=== PATIENT | female | born 1965 | race Caucasian/White ===

== ENCOUNTER 2018-04-08 16:52 | Emergency (ER) | payer SELFPAY ==
--- NOTE | 2018-04-08 17:27 | EKG REPORT ---
SEVERITY:- ABNORMAL ECG - SINUS TACHYCARDIA BORDERLINE LEFT AXIS DEVIATION NONSPECIFIC LATERAL ST-T CHANGES : Confirmed by: Milton Jain MD 08-Apr-2018 17:21:25
== END 2018-04-08 17:06 | disposition left against medical advice (07) ==
LOC: ER 16:52
DX: Z53.21 Procedure and treatment not carried out due to patient leaving prior to being seen by health care provider (principal)
CPT/HCPCS: 93005; 93010

== ENCOUNTER 2018-06-30 12:14 | Emergency (ER) | payer SELFPAY ==
[2018-06-30] MEDS ORDERED: ONDANSETRON HCL INJ/PF 4 MG/2 ML SDV IV ONE (12:47)
[2018-06-30] MEDS ORDERED: FENTANYL CITRATE INJ/PF 100 MCG/2 ML AMPUL IV ONE (12:47)
--- NOTE | 2018-06-30 12:49 | ER Document Report ---
ED Medical Screen (RME) - General Chief Complaint: Fall Injury Stated Complaint: FALL/BACK,RIGHT ARM, LEFT THUMB PAIN Time Seen by Provider: 06/30/18 12:35 Notes: Patient is a 53-year-old female that presents to the emergency department for chief complaint of neck pain, shoulder pain and left hand pain after fall. Patient reports that she fell about an hour and a half ago off her porch, landing awkwardly, and canal complaining of midline neck tenderness. ROS: Other than noted above, the 12 point review of systems was reviewed with the patient and were negative, all pertinent findings are included in the HPI. PHYSICAL EXAMINATION: Vital signs reviewed. GENERAL: Well-appearing, well-nourished and in no acute distress. HEAD: Atraumatic, normocephalic. EYES: Pupils equal round extraocular movements intact, conjunctiva are normal. ENT: Nares patent NECK: Midline cervical spine tenderness with palpation CV: Heart regular rate and rhythm LUNGS: No respiratory distress Musculoskeletal: Tenderness to palpation to the right shoulder and upper arm, and base of the left thumb. Also tenderness to palpation to the thoracic and lumbar spine. NEUROLOGICAL: Normal speech PSYCH: Normal mood, normal affect. MDM: Patient seen and examined for rapid initial assessment. Vital signs reviewed. A comprehensive ED assessment and evaluation of the patient, analysis of test results and completion of the medical decision making process will be conducted by additional ED providers. *Note is created using voice recognition software and may contain spelling, syntax or grammatical errors. TRAVEL OUTSIDE OF THE [place] IN LAST 30 DAYS: No - Related Data Allergies/Adverse Reactions: hydromorphone [From Dilaudid] Allergy (Verified 06/30/18 12:15) morphine Allergy (Verified 06/30/18 12:15) Past Medical History - Social History Chew tobacco use (# tins/day): No Frequency of alcohol use: None Drug Abuse: None - Past Medical History Cardiac Medical History: Reports: Hx Hypercholesterolemia, Hx Hypertension - noncompliant with medication Endocrine Medical History: Reports: Hx Diabetes Mellitus Type 2 - noncompliant with medication Renal/ Medical History: Denies: Hx Peritoneal Dialysis Physical Exam - Vital signs Vitals: Temp Pulse Resp BP Pulse Ox 98.0 F 88 18 187/98 H 97 06/30/18 12:25 06/30/18 12:25 06/30/18 12:25 06/30/18 12:25 06/30/18 12:25 Course - Vital Signs Vital signs: Temp Pulse Resp BP Pulse Ox 98.0 F 88 18 187/98 H 97 06/30/18 12:25 06/30/18 12:25 06/30/18 12:25 06/30/18 12:25 06/30/18 12:25
[2018-06-30 13:17] LABS: ABSOLUTE BASOPHILS # (AUTO) 0.1 10^3/uL (0.0-0.2); ABSOLUTE EOSINOPHILS # (AUTO) 0.1 10^3/uL (0.0-0.6); ABSOLUTE LYMPHOCYTES (AUTO) 1.3 10^3/uL (0.5-4.7); ABSOLUTE MONOCYTES (AUTO) 0.3 10^3/uL (0.1-1.4); ABSOLUTE NEUT (AUTO) 6.8 10^3/uL (1.7-8.2); BASOPHILS % (AUTO) 0.7 % (0-2); EOSINOPHILS % (AUTO) 1.4 % (0-6); HEMATOCRIT 44.5 % (36.0-47.0); HEMOGLOBIN 15.4 g/dL (12.0-15.5); LYMPHOCYTES % (AUTO) 14.9 % (13-45); MEAN CORPUSCULAR HEMOGLOBIN 31.9 pg (27.0-33.4); MEAN CORPUSCULAR HGB CONC 34.5 g/dL (32.0-36.0); MEAN CORPUSCULAR VOLUME 93 fl (80-97); MONOCYTES % (AUTO) 3.9 % (3-13); PLATELET COUNT 192 10^3/uL (150-450); RED BLOOD COUNT 4.81 10^6/uL (3.72-5.28); RED CELL DISTRIBUTION WIDTH 13.4 % (11.5-14.0); SEGMENTED NEUTROPHILS % (AUTO) 79.1 % (42-78); TOTAL CELLS COUNTED % (AUTO) 100 %; WHITE BLOOD COUNT 8.6 10^3/uL (4.0-10.5)
[2018-06-30 13:34] LABS: ALANINE AMINOTRANSFERASE 44 U/L (9-52); ALKALINE PHOSPHATASE 123 U/L (38-126); ANION GAP 11 (5-19); ASPARTATE AMINO TRANSFERASE 41 U/L (14-36); BILIRUBIN,DIRECT 0.3 mg/dL (0.0-0.4); BLOOD UREA NITROGEN 15 mg/dL (7-20); CALCIUM 9.2 mg/dL (8.4-10.2); CARBON DIOXIDE 30 mmol/L (22-30); CHLORIDE 97 mmol/L (98-107); CREATINE KINASE 33 U/L (30-135); POTASSIUM 4.2 mmol/L (3.6-5.0); SODIUM 138.2 mmol/L (137-145); TOTAL PROTEIN 7.2 g/dL (6.3-8.2)
[2018-06-30 13:41] LABS: GLUCOSE 428 mg/dL (75-110)
[2018-06-30 13:49] LABS: TROPONIN I < 0.012 ng/mL
--- NOTE | 2018-06-30 14:06 | RADIOLOGY REPORT (SQ) ---
EXAM DESCRIPTION: HAND LEFT 3 VIEWS COMPLETED DATE/TIME: 06/30/2018 1:45 pm REASON FOR STUDY: fall, LEFT thumb, hand pain COMPARISON: None. EXAM PARAMETERS: NUMBER OF VIEWS: Three views. TECHNIQUE: AP, lateral and oblique radiographic images acquired of the left hand. LIMITATIONS: None. FINDINGS: MINERALIZATION: Normal. BONES: No acute fracture or dislocation. No worrisome bone lesions. JOINTS: No effusions. SOFT TISSUES: No soft tissue swelling. No foreign body. OTHER: No other significant finding. IMPRESSION: NO RADIOGRAPHIC EVIDENCE OF ACUTE INJURY. TECHNICAL DOCUMENTATION: JOB ID: [id number] [employer] All Rights Reserved Reading location - IP/workstation name: [email or web address]
--- NOTE | 2018-06-30 14:06 | RADIOLOGY REPORT (SQ) ---
EXAM DESCRIPTION: HUMERUS RIGHT COMPLETED DATE/TIME: 06/30/2018 1:45 pm REASON FOR STUDY: fall, right arm pain COMPARISON: None. NUMBER OF VIEWS: Two views. TECHNIQUE: Two radiographic images were acquired of the right humerus to include elbow and shoulder in at least one projection. LIMITATIONS: None. FINDINGS: MINERALIZATION: Normal. BONES: No acute fracture or dislocation. No worrisome bone lesions. SOFT TISSUES: No obvious swelling or foreign body. OTHER: No other significant finding. IMPRESSION: NEGATIVE STUDY OF THE RIGHT HUMERUS. NO RADIOGRAPHIC EVIDENCE OF ACUTE INJURY. TECHNICAL DOCUMENTATION: JOB ID: [id number] [employer]- All Rights Reserved Reading location - IP/workstation name: [email or web address] [id number]
--- NOTE | 2018-06-30 14:07 | RADIOLOGY REPORT (SQ) ---
EXAM DESCRIPTION: L SPINE WHOLE COMPLETED DATE/TIME: 06/30/2018 1:45 pm REASON FOR STUDY: fall, back pain COMPARISON: None. NUMBER OF VIEWS: Five views including obliques. TECHNIQUE: AP, lateral, oblique, and sacral radiographic images acquired of the lumbar spine. LIMITATIONS: None. FINDINGS: MINERALIZATION: Normal. SEGMENTATION: Normal. No transitional anatomy. ALIGNMENT: Normal. VERTEBRAE: Maintained height. No fracture or worrisome bone lesion. DISCS: Multilevel disc space narrowing with osteophytes. POSTERIOR ELEMENTS: Pedicles and facets are intact. No pars defect or posterior arch defects. Facet arthropathy is present. HARDWARE: None in the spine. PARASPINAL SOFT TISSUES: Normal. PELVIS: Intact as visualized. No fractures or worrisome bone lesions. SI joints intact. OTHER: No other significant finding. IMPRESSION: SPONDYLOSIS WITHOUT BONE LESION OR FRACTURE. TECHNICAL DOCUMENTATION: JOB ID: [id number] [employer]- All Rights Reserved Reading location - IP/workstation name: [email or web address]
--- NOTE | 2018-06-30 14:07 | RADIOLOGY REPORT (SQ) ---
EXAM DESCRIPTION: T SPINE AP/LAT COMPLETED DATE/TIME: 06/30/2018 1:45 pm REASON FOR STUDY: fall, back pain midline tender COMPARISON: None. NUMBER OF VIEWS: Two views. TECHNIQUE: AP and lateral radiographic images acquired of the thoracic spine. LIMITATIONS: None. FINDINGS: MINERALIZATION: Normal. ALIGNMENT: Normal. No scoliosis. VERTEBRAE: No fracture or bone lesion. Maintained height, normal segmentation. DISCS: Multilevel disc space narrowing with osteophytes. HARDWARE: None in the spine. MEDIASTINUM AND SOFT TISSUES: Normal heart size and aortic contour. No soft tissue abnormality. VISUALIZED LUNG FERNANDEZ: Clear. OTHER: No other significant finding. IMPRESSION: SPONDYLOSIS WITHOUT BONE LESION OR FRACTURE. TECHNICAL DOCUMENTATION: JOB ID: [id number] [employer] All Rights Reserved Reading location - IP/workstation name: [email or web address]
--- NOTE | 2018-06-30 14:08 | RADIOLOGY REPORT (SQ) ---
EXAM DESCRIPTION: CT CERVICAL SPINE WITHOUT COMPLETED DATE/TIME: 06/30/2018 1:53 pm REASON FOR STUDY: fall, neck pain, midline tender COMPARISON: None. TECHNIQUE: Axial images acquired through the cervical spine without intravenous contrast. Images re viewed with lung, soft tissue and bone windows. Reconstructed coronal and sagittal MPR images review ed. Images stored on PACS. All CT scanners at this facility use dose modulation, iterative reconstruction, and/or weight based d osing when appropriate to reduce radiation dose to as low as reasonably achievable (ALARA). [facility]: Dose Right [facility]: CareDose [facility]: Dose Right [facility]: Teradose 4D [facility]: Smart fanatix RADIATION DOSE: CT Rad equipment meets quality standard of care and radiation dose reduction techniq ues were employed. CTDIvol: 33.0 mGy. DLP: 735 mGy-cm. mGy. LIMITATIONS: None. FINDINGS: ALIGNMENT: Anatomic. MINERALIZATION: Normal. VERTEBRAL BODIES: No fractures or dislocation. DISCS: Multilevel disc space narrowing with osteophytes. FACETS, LATERAL MASSES, POSTERIOR ELEMENTS: Facet arthropathy. No fractures. No dislocation. No ac [place] findings. HARDWARE: None in the spine. VISUALIZED RIBS: No fractures. LUNG APICES AND SOFT TISSUES: No significant or acute findings. OTHER: No other significant finding. IMPRESSION: CHRONIC DEGENERATIVE CHANGES. NO ACUTE FINDINGS. TECHNICAL DOCUMENTATION: JOB ID: [id number] Quality ID # [id number]: Final reports with documentation of one or more dose reduction techniques (e.g., Au tomated exposure control, adjustment of the mA and/or kV according to patient size, use of iterative reconstruction technique) 2010 [employer]- All Rights Reserved Reading location - IP/workstation name: [email or web address]
--- NOTE | 2018-06-30 14:10 | RADIOLOGY REPORT (SQ) ---
EXAM DESCRIPTION: CT HEAD WITHOUT COMPLETED DATE/TIME: 06/30/2018 1:53 pm REASON FOR STUDY: fall, head injury COMPARISON: None. TECHNIQUE: Axial images acquired through the brain without intravenous contrast. Images reviewed wi th bone, brain and subdural windows. Images stored on PACS. All CT scanners at this facility use dose modulation, iterative reconstruction, and/or weight based d osing when appropriate to reduce radiation dose to as low as reasonably achievable (ALARA). [facility]: Dose Right [facility]: CareDose [facility]: Dose Right [facility]: Teradose 4D [facility]: Smart [employer] RADIATION DOSE: CT Rad equipment meets quality standard of care and radiation dose reduction techniq ues were employed. CTDIvol: 53.2 mGy. DLP: 1070 mGy-cm. mGy. LIMITATIONS: None. FINDINGS: VENTRICLES: Normal size and contour. CEREBRUM: No masses. No hemorrhage. No midline shift. No evidence for acute infarction. Normal gra y/white matter differentiation. No areas of low density in the white matter. CEREBELLUM: No masses. No hemorrhage. No alteration of density. No evidence for acute infarction. EXTRAAXIAL SPACES: No fluid collections. No masses. ORBITS AND GLOBE: No intra- or extraconal masses. Normal contour of globe without masses. CALVARIUM: No fracture. PARANASAL SINUSES: No fluid or mucosal thickening. SOFT TISSUES: No mass or hematoma. OTHER: No other significant finding. IMPRESSION: No acute intracranial findings. EVIDENCE OF ACUTE STROKE: NO. COMMENT: Quality ID # [id number]: Final reports with documentation of one or more dose reduction techniques (e.g., Automated exposure control, adjustment of the mA and/or kV according to patient size, use of iterative reconstruction technique) TECHNICAL DOCUMENTATION: JOB ID: [id number] [place]-72 2010 [employer]- All Rights Reserved Reading location - IP/workstation name: [email or web address]
--- NOTE | 2018-06-30 14:22 | ER Document Report ---
ED Fall - General Chief Complaint: Fall Injury Stated Complaint: FALL/BACK,RIGHT ARM, LEFT THUMB PAIN Time Seen by Provider: 06/30/18 12:35 Primary Care Provider: RENE PINA MD [ACTIVE STAFF] - Follow up in 1 week Notes: 53-year-old female patient emergency department chief complaint of fall. Complaining of pain in her neck, back, left arm and left hand. States that she has been dizzy recently. Denies any chest pain but does have a history of hypertension, open heart surgery, diabetes. Has not been taking any of her medications because she states that she cannot afford to go to the doctor. Denies any chest pain or shortness of breath at this time. Denies any dizziness at this time. TRAVEL OUTSIDE OF THE [place] IN LAST 30 DAYS: No - HPI Occurred: Just prior to arrival Where: Home Context: Lost balance Associated symptoms: None Quality of pain: Achy Severity: Mild Pain Level: 2 Prehospital interventions: C-collar - Related data Allergies/Adverse Reactions: hydromorphone [From Dilaudid] Allergy (Verified 06/30/18 12:15) morphine Allergy (Verified 06/30/18 12:15) Past Medical History - General Information source: Patient - Social History Smoking Status: Current Every Day Smoker Chew tobacco use (# tins/day): No Frequency of alcohol use: None Drug Abuse: None Family History: DM, Hypertension Patient has suicidal ideation: No Patient has homicidal ideation: No - Past Medical History Cardiac Medical History: Reports: Hx Hypercholesterolemia, Hx Hypertension - noncompliant with medication Endocrine Medical History: Reports: Hx Diabetes Mellitus Type 2 - noncompliant with medication Renal/ Medical History: Denies: Hx Peritoneal Dialysis Review of Systems - Review of Systems Notes: Constitutional: denies: Chills, Diaphoresis, Fever, Malaise, Weakness EENT: denies: Eye discharge, Blurred vision, Tearing, Double vision, Nose congestion, Nose discharge, Throat swelling, Mouth pain Cardiovascular: denies: Palpitations, Heart racing, Orthopnea, Dyspnea, Chest pain Respiratory: denies: Cough, Hurts to breathe, Wheezing, Shortness of breath Gastrointestinal: denies: Abdominal pain, Diarrhea, Nausea, Vomiting, Black stools, bright red blood in stool Genitourinary: denies: Burning, Dysuria, Discharge, Frequency, Flank pain, Hematuria Musculoskeletal: Left thumb pain, left arm pain, cervical, thoracic spine pain Hematologic/Lymphatic: denies: Anemia, Easy bleeding, Easy bruising, Blood clots Neurological/Psychological: denies: Confusion, Dementia, Depression, Loss of co nsciousness Skin: No lesions, no masses, no skin breakdown, no abscesses Physical Exam - Vital signs Vitals: Temp Pulse Resp BP Pulse Ox 98.0 F 88 18 187/98 H 97 06/30/18 12:25 06/30/18 12:25 06/30/18 12:25 06/30/18 12:25 06/30/18 12:25 Interpretation: Normal - General General appearance: Appears well, Alert - HEENT Head: Normocephalic, Atraumatic Eyes: Normal Pupils: PERRL - Respiratory Respiratory status: No respiratory distress Chest status: Nontender Breath sounds: Normal Chest palpation: Normal - Cardiovascular Rhythm: Regular Heart sounds: Normal auscultation Murmur: No - Abdominal Inspection: Normal Distension: No distension Bowel sounds: Normal Tenderness: Nontender Organomegaly: No organomegaly - Back Back: Normal, Nontender - Extremities General upper extremity: Normal inspection, Nontender, Normal color, Normal ROM, Normal temperature General lower extremity: Normal inspection, Nontender, Normal color, Normal ROM, Normal temperature, Normal weight bearing. No: Binta's sign - Neurological Neuro grossly intact: Yes Cognition: Normal Orientation: AAOx4 Andrew Coma Scale Eye Opening: Spontaneous Andrew Coma Scale Verbal: Oriented [place] Coma Scale Motor: Obeys Commands [place] Coma Scale Total: 15 Speech: Normal Motor strength normal: LUE, RUE, LLE, RLE Sensory: Normal - Psychological Associated symptoms: Normal affect, Normal mood - Skin Skin Temperature: Warm Skin Moisture: Dry Skin Color: Normal Course - Re-evaluation Re-evalutation: 06/30/18 18:08 Laboratory 06/30/18 06/30/18 06/30/18 13:01 13:01 13:01 WBC 8.6 RBC 4.81 Hgb 15.4 Hct 44.5 MCV 93 MCH 31.9 MCHC 34.5 RDW 13.4 Plt Count 192 Seg Neutrophils % 79.1 H Lymphocytes % 14.9 Monocytes % 3.9 Eosinophils % 1.4 Basophils % 0.7 Absolute Neutrophils 6.8 Absolute Lymphocytes 1.3 Absolute Monocytes 0.3 Absolute Eosinophils 0.1 Absolute Basophils 0.1 Sodium 138.2 Potassium 4.2 Chloride 97 L Carbon Dioxide 30 Anion Gap 11 BUN 15 Creatinine 0.48 L Est GFR ( Amer) > 60 Est GFR (Non-Af Amer) > 60 Glucose 428 H* Calcium 9.2 Total Bilirubin 1.0 Direct Bilirubin 0.3 Neonat Total Bilirubin Not Reportable Neonat Direct Bilirubin Not Reportable Neonat Indirect Bili Not Reportable AST 41 H ALT 44 Alkaline Phosphatase 123 Creatine Kinase 33 CK-MB (CK-2) 0.40 Troponin I < 0.012 Total Protein 7.2 Albumin [address] 06/30/18 12:45 IMPRESSION: CHRONIC DEGENERATIVE CHANGES. NO ACUTE FINDINGS. Hand X-Ray 06/30/18 12:45 IMPRESSION: NO RADIOGRAPHIC EVIDENCE OF ACUTE INJURY. Head CT 06/30/18 12:45 IMPRESSION: No acute intracranial findings. EVIDENCE OF ACUTE STROKE: NO. Humerus X-Ray 06/30/18 12:45 IMPRESSION: NEGATIVE STUDY OF THE RIGHT HUMERUS. NO RADIOGRAPHIC EVIDENCE OF ACUTE INJURY. Lumbar Spine X-Ray 06/30/18 12:45 IMPRESSION: SPONDYLOSIS WITHOUT BONE LESION OR FRACTURE. Thoracic Spine X-Ray 06/30/18 12:45 IMPRESSION: SPONDYLOSIS WITHOUT BONE LESION OR FRACTURE. 06/30/18 18:08 Patient has no obvious fractures or deformities. Labs are unremarkable with exception of her extremely elevated glucose. Patient is a diabetic and she has checked her sugar at home and states that it has been running 3 and 400 range. I am going to restart her on all of her medications. Patient advised to follow- up with primary care doctor soon as possible - Vital Signs Vital signs: Temp Pulse Resp BP Pulse Ox 98.0 F 88 25 H 167/96 H 95 06/30/18 12:25 06/30/18 12:25 06/30/18 15:01 06/30/18 15:00 06/30/18 15:01 - Laboratory Result Diagrams: 06/30/18 13:01 06/30/18 13:01 Laboratory results interpreted by me: 06/30/18 06/30/18 13:01 13:01 Seg Neutrophils % 79.1 H Chloride 97 L Creatinine 0.48 L Glucose 428 H* AST 41 H - EKG Interpretation by Ak EKG shows normal: Sinus rhythm, Intervals, QRS Complexes, ST-T Waves [place]/QRS: Left axis deviation When compared to previous EKG there are: No significant change Discharge - Discharge Clinical Impression: Hyperglycemia due to type 2 diabetes mellitus Qualifiers: Diabetes mellitus intermediate card tender insulin use: without intermediate card tender use Qualified Code(s): E11.65 - Type 2 diabetes mellitus with hyperglycemia Fall Qualifiers: Encounter type: initial encounter Qualified Code(s): W19.XXXA - Unspecified fall, initial encounter Contusion Qualifiers: Encounter type: initial encounter Contusion area: hand Laterality: left Qualified Code(s): S60.222A - Contusion of left hand, initial encounter Condition: Good Disposition: HOME, SELF-CARE Instructions: Contusion ([facility]), Diabetes ([facility]) Additional Instructions: It is very important that you take your regular medications. Please try and phylicia e an appointment with the primary care doctor soon as possible to discuss all of your medical conditions. In the event that your symptoms get worse please return. Make sure you are taking your medications as instructed especially your diabetes and blood pressure medications. Prescriptions: Atorvastatin Calcium [Lipitor 20 mg Tablet] 20 mg PO QHS 30 Days #30 tablet Isosorbide Dinitrate [Isordil Titradose 10 mg Tablet] 10 mg PO BID 30 Days #60 tablet Lisinopril [Prinivil 10 mg Tablet] 10 mg PO DAILY 30 Days #30 tablet Metformin HCl [Glucophage 500 mg Tablet] 500 mg PO BID 30 Days #60 tablet Sertraline HCl [Zoloft 50 mg Tablet] 50 mg PO DAILY 30 Days #30 tablet Referrals: RENE PINA MD [ACTIVE STAFF] - Follow up in 1 week
[2018-06-30] MEDS ORDERED: ATORVASTATIN CALCIUM 20 MG TABLET PO ONE (14:52)
[2018-06-30] MEDS ORDERED: LISINOPRIL 10 MG TABLET PO ONE (14:52)
[2018-06-30] MEDS ORDERED: METFORMIN HCL 500 MG TABLET PO ONE (14:52)
[2018-06-30] MEDS ORDERED: SERTRALINE HCL 50 MG TABLET PO ONE (14:52)
[2018-06-30 15:16] VITALS: BP 167/96
--- NOTE | 2018-06-30 17:47 | EKG REPORT ---
SEVERITY:- BORDERLINE ECG - SINUS RHYTHM LEFT AXIS DEVIATION CONSIDER ANTERIOR INFARCT : Confirmed by: Milton Jain MD 30-Jun-2018 17:45:42
== END 2018-06-30 15:16 | disposition home or self-care (01) ==
LOC: ER 12:14
DX: S60.222A Contusion of left hand, initial encounter (principal); M54.2 Cervicalgia; M54.9 Dorsalgia, unspecified; M79.602 Pain in left arm; W17.89XA Other fall from one level to another, initial encounter; Y92.008 Other place in unspecified non-institutional (private) residence as the place of occurrence of the external cause; E11.65 Type 2 diabetes mellitus with hyperglycemia; M47.9 Spondylosis, unspecified; I10 Essential (primary) hypertension; R42 Dizziness and giddiness; Z88.5 Allergy status to narcotic agent; F17.200 Nicotine dependence, unspecified, uncomplicated
CPT/HCPCS: 93005; 99285; 36415; 82553; 82550; 85025; 80053; 84484; 73130; 73060; 72110; 72070; 70450; 72125; 93010; L0120; J3010; J2405

== ENCOUNTER 2018-07-03 11:39 | Emergency (ER) | payer SELFPAY ==
[2018-07-03] MEDS ORDERED: FENTANYL CITRATE INJ/PF 100 MCG/2 ML AMPUL IM ONE (12:06)
[2018-07-03] MEDS ORDERED: ONDANSETRON 4 MG TAB.RAPDIS PO ONE (12:06)
--- NOTE | 2018-07-03 12:09 | ER Document Report ---
ED Medical Screen (RME) - General Chief Complaint: Fall Stated Complaint: FALL Time Seen by Provider: 07/03/18 12:06 Notes: 53 years old female who was seen here couple of days ago after a fall presents today with difficulty in swallowing since Monday. Able to drink some water but solids were unable to eat. Due to pain diffusely over the anterior part of the neck. Diffuse tenderness over the anterior part of the neck noted. TRAVEL OUTSIDE OF THE [place] IN LAST 30 DAYS: No - Related Data Allergies/Adverse Reactions: hydromorphone [From Dilaudid] Allergy (Verified 06/30/18 12:15) morphine Allergy (Verified 06/30/18 12:15) Past Medical History - Social History Chew tobacco use (# tins/day): No Frequency of alcohol use: None Drug Abuse: None - Past Medical History Cardiac Medical History: Reports: Hx Hypercholesterolemia, Hx Hypertension - noncompliant with medication Endocrine Medical History: Reports: Hx Diabetes Mellitus Type 2 - noncompliant with medication Renal/ Medical History: Denies: Hx Peritoneal Dialysis Physical Exam - Vital signs Vitals: Temp Pulse Resp BP Pulse Ox 98.7 F 105 H 14 150/84 H 94 07/03/18 11:44 07/03/18 11:44 07/03/18 11:44 07/03/18 11:44 07/03/18 11:44 Course - Vital Signs Vital signs: Temp Pulse Resp BP Pulse Ox 98.7 F 105 H 14 150/84 H 94 07/03/18 11:44 07/03/18 11:44 07/03/18 11:58 07/03/18 11:44 07/03/18 11:44
--- NOTE | 2018-07-03 13:29 | RADIOLOGY REPORT (SQ) ---
EXAM DESCRIPTION: CT SOFT TISSUE NECK WITH COMPLETED DATE/TIME: 07/03/2018 12:59 pm REASON FOR STUDY: Pain and difficulty in swallowing/trauma 3 days ag COMPARISON: CT cervical spine and CT brain 06/30/2018 TECHNIQUE: Post IV contrasted scanning from skull base through lung apices with review of bone, soft tissue and lung windows. Reconstructed coronal and sagittal MPR images reviewed. All images stored on PACS. All CT scanners at this facility use dose modulation, iterative reconstruction, and/or weight based d osing when appropriate to reduce radiation dose to as low as reasonably achievable (ALARA). [facility]: Dose Right [facility]: CareDose [facility]: Dose Right [facility]: Teradose 4D [facility]: [employer] CONTRAST TYPE AND DOSE: contrast/concentration: Isovue 350.00 mg/ml; Total Contrast Delivered: 74.0 ml; Total Saline Delivered: 55.0 ml RENAL FUNCTION: Creatinine 0.48 RADIATION DOSE: CT Rad equipment meets quality standard of care and radiation dose reduction techniq ues were employed. CTDIvol: 17.3 mGy. DLP: 668 mGy-cm. . LIMITATIONS: None. FINDINGS: There is diffuse prevertebral soft tissue swelling, measuring up to 2 cm in thickness, fro m the C1-2 articulation down to the C6-7 level. There is mild narrowing of the posterior hypopharynx , and deviation of the esophagus and trachea ventrally on axial images 54 through 65. Immediately ventral to the the C3-4 disc space and bony spurring anteriorly at C3-4, there are severa l small air bubbles. This could indicate infection. These findings were discussed with Dr. Pedro and Dr Riddle. SKULL BASE: Inferior brain parenchyma in the field of view unremarkable MAJOR SALIVARY GLANDS: No solid or cystic masses. No inflammatory changes. LYMPHADENOPATHY: No adenopathy. MUCOSAL MASSES OR ASYMMETRY: No mucosal masses or asymmetry. LARYNX/CORDS: No abnormal findings. VASCULAR STRUCTURES: The major vessels are patent. Atherosclerotic change at both carotid bifurcatio ns without flow significant stenosis LUNG APICES: Clear. BONES: No acute fracture or malalignment. There is degenerative disc change with disc space loss of height and broad diffuse posterior disc bulge and bony spurring and C5-6 and C6-7. Mild central brynn l narrowing at C5-6 and C6-7. No significant C5-6 or C6-7 foraminal stenosis THYROID: Mild diffuse thyromegaly. 6 mm colloid cyst left upper pole thyroid. PARANASAL SINUSES: Clear. OTHER: No other significant finding. IMPRESSION: Diffuse prevertebral soft tissue swelling with few air bubbles present. Findings are wo rrisome for abscess versus hematoma. Findings discussed with the emergency room attending physicians as above. TECHNICAL DOCUMENTATION: JOB ID: [id number] Quality ID # [id number]: Final reports with documentation of one or more dose reduction techniques (e.g., Au tomated exposure control, adjustment of the mA and/or kV according to patient size, use of iterative reconstruction technique) 2010 [employer]- All Rights Reserved Reading location - IP/workstation name: [email or web address]
--- NOTE | 2018-07-03 13:47 | ER Document Report ---
ED General - General Chief Complaint: Fall Stated Complaint: FALL Time Seen by Provider: 07/03/18 12:06 Mode of Arrival: Ambulatory Information source: Patient Notes: 53-year-old female presents with complaint of difficulty swallowing. Patient states that 3 days prior to arrival she had a fall off a porch approximately 3 feet where she landed forward striking her chin and face. She denies any loss of consciousness at that time. Patient was evaluated in the emergency department and apical spine CAT scan was obtained and showed no acute fracture or process. Patient's reports progressively worsening difficulty swallowing. She states last night she attempted to drink water when she began choking and vomited it back up. Patient also states that she has had subjective fevers. TRAVEL OUTSIDE OF THE [place] IN LAST 30 DAYS: No - HPI Onset: Other Onset/Duration: Gradual, Persistent Quality of pain: Achy, Burning, Throbbing Severity: Moderate Associated symptoms: Fever, Other - Difficulty swallowing Exacerbated by: Other - Swallowing Relieved by: Denies Similar symptoms previously: No Recently seen / treated by doctor: Yes - Related Data Allergies/Adverse Reactions: hydromorphone [From Dilaudid] Allergy (Verified 06/30/18 12:15) morphine Allergy (Verified 06/30/18 12:15) Past Medical History - General Information source: Patient, [facility] Records - Social History Smoking Status: Former Smoker Chew tobacco use (# tins/day): No Frequency of alcohol use: None Drug Abuse: None Lives with: Family Family History: DM, Hypertension Patient has suicidal ideation: No Patient has homicidal ideation: No - Past Medical History Cardiac Medical History: Reports: Hx Hypercholesterolemia, Hx Hypertension - noncompliant with medication Endocrine Medical History: Reports: Hx Diabetes Mellitus Type 2 - noncompliant with medication Renal/ Medical History: Denies: Hx Peritoneal Dialysis Review of Systems - Review of Systems Notes: REVIEW OF SYSTEMS: CONSTITUTIONAL : Denies fever, chills, or sweats. Denies recent illness. Denies weight loss, recent hospitalizations. EENT: Denies visual changes, eye pain. Denies sore throat, oral lesions, CARDIOVASCULAR: Denies chest pain. Denies palpitations. Denies lower extremity edema. RESPIRATORY: Denies cough. Denies shortness of breath, wheezing. GASTROINTESTINAL: Denies abdominal pain or distention. Denies nausea, vomiting, or diarrhea. Denies blood in vomitus, stools, or per rectum. Denies black, tarry stools. Denies constipation. GENITOURINARY: Denies difficulty urinating, painful urination, frequency, blood in urine, or vaginal discharge. MUSCULOSKELETAL: Denies back stiffness. Denies joint pain or swelling. SKIN: Denies rash, lesions or sores. HEMATOLOGIC : Denies easy bruising or bleeding. LYMPHATIC: Denies swollen glands. NEUROLOGICAL: Denies confusion or altered mental status. Denies loss of consciousness. Denies dizziness or lightheadedness. Denies headache. Denies weakness or paralysis. Denies problems difficulty with ambulation, slurred sp eech. Denies sensory loss, numbness, or tingling. Denies seizures. PSYCHIATRIC: Denies anxiety or stress. Denies depression, suicidal ideation, or homicidal ideation. Denies visual or auditory hallucinations. Physical Exam - Vital signs Vitals: Temp Pulse Resp BP Pulse Ox 98.7 F 105 H 14 150/84 H 94 07/03/18 11:44 07/03/18 11:44 07/03/18 11:44 07/03/18 11:44 07/03/18 11:44 - Notes Notes: PHYSICAL EXAMINATION: GENERAL: Well-appearing, well-nourished and in no acute distress. GCS 15 HEAD: Atraumatic, normocephalic. EYES: Pupils equal round and reactive to light, extraocular movements intact, sclera anicteric, conjunctiva are normal. Left periorbital ecchymosis. ENT: Nares patent, oropharynx with exudates. Moist mucous membranes. No hemanotympanum . No blood in nares. No dental fracture NECK: Normal range of motion, anterior neck fullness. Trachea midline. No stridor. LUNGS: Breath sounds clear to auscultation bilaterally and equal. No wheezes rales or rhonchi. HEART: Regular rate and rhythm without murmurs. Pulses intact all throughout. ABDOMEN: Soft, nontender, nondistended abdomen. No guarding, no rebound. No masses appreciated. Musculoskeletal: Normal range of motion, no pitting or edema. No cyanosis. Hip non tender, stable. NEUROLOGICAL: Cranial nerves grossly intact. Normal speech, normal gait. Normal sensory, motor, and reflex exams. PSYCH: Normal mood, normal affect. SKIN: Warm, No active bleeding Course - Re-evaluation Re-evalutation: 07/03/18 13:[address] 07/03/18 12:06 IMPRESSION: Diffuse prevertebral soft tissue swelling with few air bubbles present. Findings are worrisome for abscess versus hematoma. Findings discussed with the emergency room attending physicians as above. 07/03/18 13:[address] 07/03/18 12:06 IMPRESSION: Diffuse prevertebral soft tissue swelling with few air bubbles present. Findings are worrisome for abscess versus hematoma. Findings discussed with the emergency room attending physicians as above. Laboratory 07/03/18 07/03/18 13:46 13:46 WBC 12.4 H RBC 4.54 Hgb 14.5 Hct 41.7 MCV 92 MCH 32.0 MCHC 34.8 RDW 12.7 Plt Count 197 Seg Neutrophils % 83.4 H Lymphocytes % 10.2 L Monocytes % 5.7 Eosinophils % 0.2 Basophils % 0.5 Absolute Neutrophils 10.3 H Absolute Lymphocytes 1.3 Absolute Monocytes 0.7 Absolute Eosinophils 0.0 Absolute Basophils 0.1 Sodium 137.7 Potassium 4.1 Chloride 95 L Carbon Dioxide 31 H Anion Gap 12 BUN 12 Creatinine 0.52 Est GFR ( Amer) > 60 Est GFR (Non-Af Amer) > 60 Glucose 258 H Calcium 9.2 Total Bilirubin 1.8 H Direct Bilirubin 0.6 H Neonat Total Bilirubin Not Reportable Neonat Direct Bilirubin Not Reportable Neonat Indirect Bili Not Reportable AST 18 ALT 16 Alkaline Phosphatase 109 Total Protein 7.0 Albumin 3.7 53-year-old female presents with complaint of worsening neck pain, difficulty swallowing. Patient reports that 3 days prior to arrival she had a fall off her porch approximately 3 feet landing forward striking her chin and face. She denies loss of consciousness. She does state that since that time she has had progressively worsening pain and difficulty swallowing to the point where she is unable to tolerate water. Dr. Arana our radiologist called with concern for prevertebral soft tissue swelling with air bubbles within this area. This also showed deviation of the esophagus and trachea. Unclear whether this is an abscess versus hematoma due to patient's recent trauma. Patient does have exudates and subjective fever on exam so there is a possibility that this could be an abscess. I spoke with Dr. Osullivan trauma surgeon at [facility] who believes this is likely infectious. I spoke to our ENT doctor Dr. Rutherford who states that he is concerned that this patient will require a higher level of care than what can be provided here. He states with seeing air within this area it is concerning that there is a possible esophageal tear. He recommended administration of Unasyn and Flagyl which was given. Patient also received IV fluids. Awaiting callback from [facility]. 07/03/18 13:52 [facility] contacted as this is more convenient for where the family is located.. Patient has been accepted by Dr. Agrawal for an ER to ER transfer. I believe this is in the patient's best interest as if this progresses to mediastinitis or this is a traumatic hematoma she will have all the available services required. Because of the potential airway compromise patient requires immediately transfer. She is currently patient is maintaining her airway, shows no evidence of respiratory distress. She is mildly hypoxic but does have a history of COPD. No stridor on exam. We did attempt a swallow study and patient immediately choked. 07/03/18 14:32 07/03/18 21:23 Patient was reevaluated upon [facility] transfer team arrival. She is awake, alert in no respiratory distress. Patient stable for transfer to [facility] - Vital Signs Vital signs: Temp Pulse Resp BP Pulse Ox 100.4 F 93 20 137/109 H 97 07/03/18 14:06 07/03/18 14:44 07/03/18 14:44 07/03/18 14:44 07/03/18 14:44 - Laboratory Result Diagrams: 07/03/18 13:46 07/03/18 13:46 Laboratory results interpreted by me: 07/03/18 07/03/18 13:46 13:46 WBC 12.4 H Seg Neutrophils % 83.4 H Lymphocytes % 10.2 L Absolute Neutrophils 10.3 H Chloride 95 L Carbon Dioxide 31 H Glucose 258 H Total Bilirubin 1.8 H Direct Bilirubin 0.6 H - Diagnostic Test Radiology reviewed: Image reviewed, Reports reviewed Critical Care Note - Critical Care Note Total time excluding time spent on procedures (mins): 35 - Minutes of critical care time spent in direct contact evaluating and reevaluating the patient, treating symptoms, reviewing labs and studies and speaking with family and consultants excluding any procedures Discharge - Discharge Clinical Impression: Cervical hematoma, Prevertebral abscess Condition: Good Disposition: [facility]
[2018-07-03] MEDS ORDERED: METRONIDAZOLE 500 MG/NS RTU 500 MG/100 ML RTUPB IV ONE (13:51)
[2018-07-03] MEDS ORDERED: AMPICILLIN SOD/SULBACTAM 3 GM VIAL IV ONE (13:51)
[2018-07-03] MEDS ORDERED: DEXAMETHASONE SOD PHOS INJ 10 MG/1 ML VIAL IV ONE (14:03)
[2018-07-03 14:08] LABS: ABSOLUTE BASOPHILS # (AUTO) 0.1 10^3/uL (0.0-0.2); ABSOLUTE LYMPHOCYTES (AUTO) 1.3 10^3/uL (0.5-4.7); ABSOLUTE MONOCYTES (AUTO) 0.7 10^3/uL (0.1-1.4); TOTAL CELLS COUNTED % (AUTO) 100 %
[2018-07-03 14:22] LABS: ALANINE AMINOTRANSFERASE 16 U/L (9-52); ALBUMIN 3.7 g/dL (3.5-5.0); ALKALINE PHOSPHATASE 109 U/L (38-126); ANION GAP 12 (5-19); ASPARTATE AMINO TRANSFERASE 18 U/L (14-36); BILIRUBIN,DIRECT 0.6 mg/dL (0.0-0.4); BILIRUBIN,TOTAL 1.8 mg/dL (0.2-1.3); BLOOD UREA NITROGEN 12 mg/dL (7-20); CALCIUM 9.2 mg/dL (8.4-10.2); CARBON DIOXIDE 31 mmol/L (22-30); CHLORIDE 95 mmol/L (98-107); GLUCOSE 258 mg/dL (75-110); POTASSIUM 4.1 mmol/L (3.6-5.0); SODIUM 137.7 mmol/L (137-145)
[2018-07-03 14:30] LABS: ABSOLUTE NEUT (AUTO) 10.3 10^3/uL (1.7-8.2); BASOPHILS % (AUTO) 0.5 % (0-2); EOSINOPHILS % (AUTO) 0.2 % (0-6); HEMATOCRIT 41.7 % (36.0-47.0); HEMOGLOBIN 14.5 g/dL (12.0-15.5); LYMPHOCYTES % (AUTO) 10.2 % (13-45); MEAN CORPUSCULAR HGB CONC 34.8 g/dL (32.0-36.0); MEAN CORPUSCULAR VOLUME 92 fl (80-97); MONOCYTES % (AUTO) 5.7 % (3-13); PLATELET COUNT 197 10^3/uL (150-450); RED BLOOD COUNT 4.54 10^6/uL (3.72-5.28); RED CELL DISTRIBUTION WIDTH 12.7 % (11.5-14.0); SEGMENTED NEUTROPHILS % (AUTO) 83.4 % (42-78); WHITE BLOOD COUNT 12.4 10^3/uL (4.0-10.5)
[2018-07-03 14:45] VITALS: BP 137/109
== END 2018-07-03 14:50 | disposition short-term general hospital (02) ==
LOC: ER 11:39
DX: S10.93XA Contusion of unspecified part of neck, initial encounter (principal); G06.1 Intraspinal abscess and granuloma; R13.10 Dysphagia, unspecified; W17.89XA Other fall from one level to another, initial encounter; Y92.008 Other place in unspecified non-institutional (private) residence as the place of occurrence of the external cause; Z87.891 Personal history of nicotine dependence; I10 Essential (primary) hypertension; E11.9 Type 2 diabetes mellitus without complications; Z91.14 Patient's other noncompliance with medication regimen
CPT/HCPCS: 99291; 96372; 96375; 96365; 36415; 87040; 85025; 80053; 70491; S0119; J3010; J0295; J1100

== ENCOUNTER 2018-07-15 17:59 | Emergency (ER) | payer SELFPAY ==
[2018-07-15 18:17] VITALS: BP 166/91
--- NOTE | 2018-07-16 01:28 | EKG REPORT ---
SEVERITY:- ABNORMAL ECG - SINUS RHYTHM LEFT AXIS DEVIATION PROBABLE LVH WITH SECONDARY REPOL ABNRM : Confirmed by: Miranda Luna MD 16-Jul-2018 01:27:15
== END 2018-07-15 18:43 | disposition left against medical advice (07) ==
LOC: ER 17:59
DX: Z53.21 Procedure and treatment not carried out due to patient leaving prior to being seen by health care provider (principal); R07.9 Chest pain, unspecified
CPT/HCPCS: 93005; 93010

== ENCOUNTER 2018-09-19 16:53 | Emergency (ER) | payer SELFPAY ==
[2018-09-19] MEDS ORDERED: KETOROLAC TROMETHAMINE 60 MG/2 ML SDV IM ONE (19:00)
--- NOTE | 2018-09-19 19:10 | ER Document Report ---
ED Neck/Back Problem - General Chief Complaint: Back Pain Stated Complaint: BACK PAIN Time Seen by Provider: 09/19/18 18:44 Primary Care Provider: [facility] [Provider Group] - Follow up as needed [facility] [Provider Group] - Follow up as needed Mode of Arrival: Ambulatory Information source: Patient Notes: 53-year-old female presents to ED for complaint of low back to the right and right hip pain for 4 days. She denies any history of any injuries. She states she is never had pain in this area before. She does have tenderness to the l umbar spine the right buttocks and the right hip area. States it is very painful to walk or very painful to get up and down out of the bed. TRAVEL OUTSIDE OF THE [place] IN LAST 30 DAYS: No - HPI Patient complains to provider of: Lower back Onset: Other Where: Home - 4 days Onset: Gradual Timing: Still present Quality of pain: Sharp, Throbbing Severity: Moderate Pain Level: 4 Context: Other Recent injury: No - No injuries Associated symptoms: Radiation to leg, Lower back pain Exacerbated by: Movement of trunk, Sitting position Relieved by: Nothing Similar symptoms previously: No Recently seen / treated by doctor: No - Related Data Allergies/Adverse Reactions: hydromorphone [From Dilaudid] Allergy (Verified 09/19/18 16:54) morphine Allergy (Verified 09/19/18 16:54) Past Medical History - General Information source: Patient - Social History Smoking Status: Former Smoker Cigarette use (# per day): No Chew tobacco use (# tins/day): No Smoking Education Provided: No Frequency of alcohol use: None Drug Abuse: None Lives with: Family Family History: DM, Hypertension Patient has suicidal ideation: No Patient has homicidal ideation: No - Past Medical History Cardiac Medical History: Reports: Hx Coronary Artery Disease, Hx Heart Attack, Hx Hypercholesterolemia, Hx Hypertension - noncompliant with medication Pulmonary Medical History: Reports: Hx Asthma EENT Medical History: Reports: None Neurological Medical History: Reports: Other - Neuropathy Endocrine Medical History: Reports: Hx Diabetes Mellitus Type 2 - noncompliant with medication Renal/ Medical History: Reports: None Malignancy Medical History: Reports: None GI Medical History: Reports: Hx Gastroesophageal Reflux Disease, Hx Colonoscopy, Hx Endoscopy, Other - Esophageal tear Musculoskeletal Medical History: Reports Hx Arthritis, Reports Hx Musculoskeletal Deformity - Degenerative disc disease, Reports Hx Musculoskeletal Trauma Skin Medical History: Reports None Psychiatric Medical History: Reports: None Traumatic Medical History: Reports: Hx Fractures - Ankle fingers Infectious Medical History: Reports: None Past Surgical History: Reports: Hx Cardiac Catheterization, Hx Cardiac Surgery - Four-way bypass Review of Systems - Review of Systems Constitutional: No symptoms reported EENT: No symptoms reported Cardiovascular: No symptoms reported Respiratory: No symptoms reported Gastrointestinal: No symptoms reported Genitourinary: No symptoms reported Female Genitourinary: No symptoms reported Musculoskeletal: Back pain, Joint pain - Right hip Skin: No symptoms reported Hematologic/Lymphatic: No symptoms reported Neurological/Psychological: No symptoms reported -: Yes All other systems reviewed and negative Physical Exam - Vital signs Vitals: Temp Pulse Resp BP Pulse Ox 98.9 F 76 20 139/80 H 95 09/19/18 17:11 09/19/18 17:11 09/19/18 17:11 09/19/18 17:11 09/19/18 17:11 Interpretation: Normal - General General appearance: Appears well, Alert - HEENT Head: Normocephalic, Atraumatic Eyes: Normal Pupils: PERRL - Respiratory Respiratory status: No respiratory distress Chest status: Nontender Breath sounds: Normal Chest palpation: Normal - Cardiovascular Rhythm: Regular Heart sounds: Normal auscultation Murmur: No - Abdominal Inspection: Normal Distension: No distension Bowel sounds: Normal Tenderness: Nontender Organomegaly: No organomegaly - Back Back: Normal, Tender, Vertebra tenderness - Lumbar. No: Deformity/step-off, CVA tenderness, Scars, Scoliosis, Wounds Notes: No loss control of bowel bladder, no saddle anesthesia, no loss of lower extremities or no loss of sensation in lower extremities no signs or symptoms of cauda equina - Extremities General upper extremity: Normal inspection, Nontender, Normal color, Normal ROM, Normal temperature General lower extremity: Normal inspection, Normal color, Normal temperature, Normal weight bearing. No: Binta's sign Hip: Tender, Pain with ROM. No: Deformity, Dislocation, Ecchymosis, Instability, Laceration, Unable to bear weight - Neurological Neuro grossly intact: Yes Cognition: Normal Orientation: AAOx4 [place] Coma Scale Eye Opening: Spontaneous Andrew Coma Scale Verbal: Oriented Andrew Coma Scale Motor: Obeys Commands Andrew Coma Scale Total: 15 Speech: Normal Motor strength normal: LUE, RUE, LLE, RLE Sensory: Normal - Psychological Associated symptoms: Normal affect, Normal mood - Skin Skin Temperature: Warm Skin Moisture: Dry Skin Color: Normal Course - Re-evaluation Re-evalutation: 09/19/18 20:34 After performing a Medical Screening Examination, I estimate there is LOW risk for EXPANDING OR RUPTURED ABDOMINAL AORTIC ANEURYSM, CAUDA EQUINA SYNDROME, EPIDURAL MASS LESION, or HERNIATED DISK CAUSING SEVERE SPINAL STENOSIS, thus I consider the discharge disposition reasonable. I have reevaluated this patient multiple times and no significant life threatening changes are noted. The patient and I have discussed the diagnosis and risks, and we agree with discharging home and close follow-up. We also discussed returning to the Emergency Department immediately if new or worsening symptoms occur with the understanding that symptoms and presentations can change. We have discussed the symptoms which are most concerning (e.g., saddle anesthesia, urinary or bowel incontinence or retention, changing or worsening pain) that necessitate immediate return. - Vital Signs Vital signs: Temp Pulse Resp BP Pulse Ox 98.2 F 66 16 136/65 H 96 09/19/18 20:28 09/19/18 20:28 09/19/18 20:28 09/19/18 20:28 09/19/18 20:28 - Diagnostic Test Radiology reviewed: Image reviewed, Reports reviewed Discharge - Discharge Clinical Impression: Degenerative disc disease, lumbar, Arthritis, Right hip pain Scoliosis Qualifiers: Scoliosis type: unspecified scoliosis Spinal region: lumbar Qualified Code(s): M41.9 - Scoliosis, unspecified Low back pain Qualifiers: Chronicity: acute Back pain laterality: bilateral Sciatica presence: with sciatica Sciatica laterality: sciatica of right side Qualified Code(s): M54.41 - Lumbago with sciatica, right side Condition: Stable Disposition: HOME, SELF-CARE Instructions: Family Physicians / Practices Additional Instructions: Arthritis Your symptoms are due to arthritis. Arthritis is an inflammation of the joints. There are many types -- osteoarthritis (due to "wear and tear"), auto- immmune arthritis (such as rheumatoid, lupus, Nahed's, and others), and cr ystal-induced arthritis (such as gout and pseudogout). The physician's examination, combined with laboratory tests, will determine the cause of your arthritis. All types of arthritis are treated with antiinflammatory medications. Other medication may be required for special types of arthritis, or if your problem does not respond to the antiinflammatory medicine. Local warmth may be helpful. Move the involved joints through the full range of motion daily. Mild exercise is usually still possible for most persons with arthritis (ask your physician). Swimming provides good exercise without damaging the joints. Contact the physician if you are worsening in any way. Your x-rays demonstrated multiple degenerative disc disease as well as scoliosis. You need to follow-up with her primary doctor and a back specialist for this. LOW BACK PAIN: Three out of every four people will have an episode of disabling back pain during their lifetime. Most commonly the pain is due to straining of the muscles and ligaments in the low back. Usual treatment includes: (1) Rest on a firm surface. Avoid lying on your stomach. (2) Ice pack the painful area. After a few days, gentle heat may be used intermittently to relax the area, or ice packs can be continued. (3) Medication may be needed -- muscle relaxers and antiinflammatory medicines are commonly used. (4) As the back improves, exercises are prescribed to strengthen the back and abdominal muscles. Your doctor will advise you on the proper care for your back at each stage in your recovery. You may be better in a few days -- or healing may take several weeks. If new symptoms of a "herniated disc" (radiation of pain, numbness, or tingling down the back of the leg or weakness in the leg) occur, you should be re-examined. Further testing may be necessary. ICE PACKS: Apply ice packs frequently against the painful area. Many different schedules are recommended, such as "20 minutes on, 20 minutes off" or "one hour ice, two hours rest." If you need to work, you may need to go longer between ice treatments. You should plan to have the area ice packed AT LEAST one fourth of the time. The ice should be applied over the wrap, tape, or splint, or over a layer of cloth -- not directly against the skin. Some ice bags have a built-in cloth and can be put directly on the skin. WARM PACKS: After approximately two days, apply gentle heat (such as a heating pad or hot water bottle) for about 20 to 30 minutes about every two hours -- at least four times daily. Warmth and elevation will help you make a more rapid recovery, and will ease the pain considerably. Do not use HOT heat, and never apply heat for longer than 30 minutes. The continuous heat can invisibly damage skin and muscles -- even when no burn is seen on the surface. Damaged muscles can make you MORE sore. Toradol Injection You have been given an injection of ketorolac tromethamine (Toradol). This is an excellent, safe drug for pain control. It also has potent antiinflammatory action. You should have significant pain relief within about one hour. Toradol is not addicting and is non-sedating. It does not interfere with driving or work. Call or return if you develop itching, hives, shortness of breath, or rash. FOLLOW-UP CARE: If you have been referred to a physician for follow-up care, call the physicians office for an appointment as you were instructed or within the next two days. If you experience worsening or a significant change in your symptoms, notify the physician immediately or return to the Emergency Department at any time for re-evaluation. Forms: Elevated Blood Pressure Referrals: [facility] [Provider Group] - Follow up as needed [facility] [Provider Group] - Follow up as needed
--- NOTE | 2018-09-19 20:07 | RADIOLOGY REPORT (SQ) ---
EXAM DESCRIPTION: HIP RIGHT AP/LATERAL COMPLETED DATE/TIME: 09/19/2018 7:14 pm REASON FOR STUDY: pain increasing over 4 days COMPARISON: None. NUMBER OF VIEWS: Two views. TECHNIQUE: AP pelvis and additional frog-leg view of the right hip. LIMITATIONS: None. FINDINGS: MINERALIZATION: Normal. RIGHT HIP: Mild joint space narrowing. Marginal osteophytes on the femoral head. No fracture. LEFT HIP: No fracture or dislocation. No worrisome bone lesions. PUBIS AND ISCHIUM: No fracture. PELVIS: No fracture. SACRUM: No fracture or dislocation. No worrisome bone lesions. LOWER LUMBAR SPINE: No fracture or dislocation. No worrisome bone lesions. No significant disc disea se. SOFT TISSUES: No findings. OTHER: No other significant finding. IMPRESSION: Degenerative joint disease. If there is strong suspicion for fracture, consider CT. TECHNICAL DOCUMENTATION: JOB ID: [id number] [employer]- All Rights Reserved Reading location - IP/workstation name: [email or web address]
--- NOTE | 2018-09-19 20:07 | RADIOLOGY REPORT (SQ) ---
EXAM DESCRIPTION: L SPINE WHOLE COMPLETED DATE/TIME: 09/19/2018 7:14 pm REASON FOR STUDY: pain increasing over 4 days COMPARISON: None. NUMBER OF VIEWS: Five views including obliques. TECHNIQUE: AP, lateral, oblique, and sacral radiographic images acquired of the lumbar spine. LIMITATIONS: None. FINDINGS: MINERALIZATION: Normal. SEGMENTATION: Normal. No transitional anatomy. ALIGNMENT: Mild levoscoliosis. VERTEBRAE: Maintained height. No fracture or worrisome bone lesion. DISCS: Disc spaces are narrowed from L2-L4 with prominent marginal osteophytes. POSTERIOR ELEMENTS: Hypertrophic facet changes from L3-S1. HARDWARE: None in the spine. PARASPINAL SOFT TISSUES: Normal. PELVIS: Intact as visualized. No fractures or worrisome bone lesions. SI joints intact. OTHER: No other significant finding. IMPRESSION: Scoliosis, spondylosis, facet arthropathy. Degenerative disc disease. TECHNICAL DOCUMENTATION: JOB ID: [id number] [employer]- All Rights Reserved Reading location - IP/workstation name: [email or web address]
[2018-09-19 20:37] VITALS: BP 136/65
== END 2018-09-19 20:39 | disposition home or self-care (01) ==
LOC: ER 16:53
DX: M51.36 Other intervertebral disc degeneration, lumbar region (principal); M41.9 Scoliosis, unspecified; M54.41 Lumbago with sciatica, right side; M54.9 Dorsalgia, unspecified; M25.551 Pain in right hip; Z87.891 Personal history of nicotine dependence; I25.10 Atherosclerotic heart disease of native coronary artery without angina pectoris; I10 Essential (primary) hypertension; J45.909 Unspecified asthma, uncomplicated; E11.9 Type 2 diabetes mellitus without complications
CPT/HCPCS: 99283; 96372; 73502; 72110; J1885

== ENCOUNTER 2018-09-23 17:59 | Emergency (ER) | payer SELFPAY ==
[2018-09-23] MEDS ORDERED: HYDROCODONE/ACETAMINOPHEN 5-325 MG TABLET PO ONE (19:24)
--- NOTE | 2018-09-23 19:28 | ER Document Report ---
ED Medical Screen (RME) - General Chief Complaint: Hip Pain Stated Complaint: HIP PAIN Time Seen by Provider: 09/23/18 19:04 Mode of Arrival: Wheelchair Information source: Patient Notes: Patient presents complaining of low back pain and right hip pain for the past 8 days. Patient states that she had a fever of 1012 yesterday. Patient does complain of nausea with vomiting yesterday. Patient does report right lower pelvic tenderness. Patient denies any urinary symptoms. patient complains of numbness to right hip area that is a new symptom for her. I have greeted and performed a rapid initial assessment of this patient. A comprehensive ED assessment and evaluation of the patient, analysis of test results and completion of the medical decision making process will be conducted by additional ED providers. TRAVEL OUTSIDE OF THE [place] IN LAST 30 DAYS: No - Related Data Allergies/Adverse Reactions: hydromorphone [From Dilaudid] Allergy (Verified 09/23/18 18:00) morphine Allergy (Verified 09/23/18 18:00) Past Medical History - Past Medical History Cardiac Medical History: Reports: Hx Coronary Artery Disease, Hx Heart Attack, Hx Hypercholesterolemia, Hx Hypertension - noncompliant with medication Pulmonary Medical History: Reports: Hx Asthma Endocrine Medical History: Reports: Hx Diabetes Mellitus Type 2 - noncompliant with medication Renal/ Medical History: Denies: Hx Peritoneal Dialysis GI Medical History: Reports: Hx Gastroesophageal Reflux Disease, Hx Colonoscopy, Hx Endoscopy Musculoskeltal Medical History: Reports Hx Arthritis, Reports Hx Musculoskeletal Deformity - Degenerative disc disease, Reports Hx Musculoskeletal Trauma Traumatic Medical History: Reports: Hx Fractures - Ankle fingers Past Surgical History: Reports: Hx Cardiac Catheterization, Hx Cardiac Surgery - Four-way bypass Physical Exam - Vital signs Vitals: Temp Pulse Resp BP Pulse Ox 98.2 F 67 22 H 153/68 H 96 09/23/18 18:04 09/23/18 18:04 09/23/18 18:04 09/23/18 18:04 09/23/18 18:04 - Abdominal Tenderness: Tender - Right lower pelvic tenderness - Back Back: Vertebra tenderness - Lower lumbar midline tenderness - Extremities General lower extremity: Tender - Right lateral hip tenderness over greater trochanter Course - Vital Signs Vital signs: Temp Pulse Resp BP Pulse Ox 98.2 F 67 22 H 153/68 H 96 09/23/18 18:04 09/23/18 18:04 09/23/18 18:04 09/23/18 18:04 09/23/18 18:04
--- NOTE | 2018-09-23 19:54 | ER Document Report ---
ED Neck/Back Problem - General Chief Complaint: Hip Pain Stated Complaint: HIP PAIN Time Seen by Provider: 09/23/18 19:04 Primary Care Provider: [facility] [Provider Group] - Follow up as needed Mode of Arrival: Wheelchair Information source: Patient Notes: 53-year-old female presents to ED for complaint of low back and right hip pain for the past 8 days. She states she had a fever of 100.2 yes 2 days with some nausea and vomiting. She states that her low back has continued with the burning down the right leg. She was seen several days ago with the similar pain she just had not had a fever and her x-rays were discussed with her and she does have a follow-up appointment. She just states she became concerned because she had a fever with nausea and vomiting. She states the pain is been for about 8 days. TRAVEL OUTSIDE OF THE [place] IN LAST 30 DAYS: No - HPI Patient complains to provider of: Lower back Onset: Last week Onset: Gradual Timing: Still present Quality of pain: Burning, Sharp Severity: Moderate Pain Level: 4 Recent injury: No Associated symptoms: Like prior neck/back pain, Numbness/tingling, Radiation to leg, Lower back pain Exacerbated by: Movement of trunk, Sitting position Relieved by: Nothing Similar symptoms previously: Yes Recently seen / treated by doctor: Yes - Related Data Allergies/Adverse Reactions: hydromorphone [From Dilaudid] Allergy (Verified 09/23/18 19:32) morphine Allergy (Verified 09/23/18 19:32) Past Medical History - General Information source: Patient - Social History Smoking Status: Never Smoker Frequency of alcohol use: None Drug Abuse: None Family History: DM, Hypertension Patient has suicidal ideation: No Patient has homicidal ideation: No - Past Medical History Cardiac Medical History: Reports: Hx Coronary Artery Disease, Hx Heart Attack, Hx Hypercholesterolemia, Hx Hypertension - noncompliant with medication Pulmonary Medical History: Reports: Hx Asthma EENT Medical History: Reports: None Neurological Medical History: Reports: None Endocrine Medical History: Reports: Hx Diabetes Mellitus Type 2 - noncompliant with medication Renal/ Medical History: Reports: None Malignancy Medical History: Reports: None GI Medical History: Reports: Hx Gastroesophageal Reflux Disease, Hx Colonoscopy, Hx Endoscopy Musculoskeletal Medical History: Reports Hx Arthritis, Reports Hx Musculoskeletal Deformity - Degenerative disc disease, scolosis, spondylosis, facet artropathy, Reports Hx Musculoskeletal Trauma Skin Medical History: Reports None Psychiatric Medical History: Reports: None Traumatic Medical History: Reports: Hx Fractures - Ankle fingers Infectious Medical History: Reports: None Past Surgical History: Reports: Hx Cardiac Catheterization, Hx Cardiac Surgery - Four-way bypass - Immunizations Immunizations up to date: Yes Hx Diphtheria, Pertussis, Tetanus Vaccination: Yes Review of Systems - Review of Systems Constitutional: No symptoms reported EENT: No symptoms reported Cardiovascular: No symptoms reported Respiratory: No symptoms reported Gastrointestinal: Nausea - Yesterday, Vomiting - Yesterday Genitourinary: No symptoms reported Female Genitourinary: No symptoms reported Musculoskeletal: Back pain, Joint pain, Muscle pain, Muscle stiffness. denies: Gout, Joint swelling Skin: No symptoms reported Hematologic/Lymphatic: No symptoms reported Neurological/Psychological: No symptoms reported Physical Exam - Vital signs Vitals: Temp Pulse Resp BP Pulse Ox 98.2 F 67 22 H 153/68 H 96 09/23/18 18:04 09/23/18 18:04 09/23/18 18:04 09/23/18 18:04 09/23/18 18:04 Interpretation: Normal - General General appearance: Appears well, Alert - HEENT Head: Normocephalic, Atraumatic Eyes: Normal Pupils: PERRL - Respiratory Respiratory status: No respiratory distress Chest status: Nontender Breath sounds: Normal Chest palpation: Normal - Cardiovascular Rhythm: Regular Heart sounds: Normal auscultation Murmur: No - Abdominal Inspection: Normal Distension: No distension Bowel sounds: Normal Tenderness: Nontender Organomegaly: No organomegaly - Back Back: Normal, Tender, Vertebra tenderness - Lumbar, Scoliosis - Extremities General upper extremity: Normal inspection, Nontender, Normal color, Normal ROM, Normal temperature General lower extremity: Normal inspection, Normal color, Normal ROM, Normal temperature, Normal weight bearing. No: Binta's sign Hip: Tender - Right lateral hip, Pain with ROM. No: Abrasion, Deformity, Dislocation, Ecchymosis, Instability, Laceration, Unable to bear weight - Neurological Neuro grossly intact: Yes Cognition: Normal Orientation: AAOx4 [place] Coma Scale Eye Opening: Spontaneous [place] Coma Scale Verbal: Oriented [place] Coma Scale Motor: Obeys Commands Andrew Coma Scale Total: 15 Speech: Normal Motor strength normal: LUE, RUE, LLE, RLE Sensory: Normal - Psychological Associated symptoms: Normal affect, Normal mood - Skin Skin Temperature: Warm Skin Moisture: Dry Skin Color: Normal Course - Re-evaluation Re-evalutation: 09/24/18 03:00 Discussed results of labs and MRI with Dr. Harrell. Patient was treated with [place] ibuprofen and she states she has muscle relaxers at home. Patient is instructed to follow-up with her primary care and with a back specialist. Patient verbalized [facility] have them thought send her to a back specialist. Patient was discharged home. - Vital Signs Vital signs: Temp Pulse Resp BP Pulse Ox 97.6 F 72 16 149/89 H 94 09/23/18 21:02 09/23/18 21:02 09/23/18 21:02 09/23/18 21:02 09/23/18 21:02 - Laboratory Result Diagrams: 09/23/18 19:01 09/23/18 19:24 Laboratory results interpreted by me: 09/23/18 09/23/18 19:01 19:24 Creatinine 0.42 L Glucose 313 H Urine Glucose (UA) >=500 H Urine Ketones TRACE H Urine Urobilinogen 2.0 H - Diagnostic Test Radiology reviewed: Image reviewed, Reports reviewed Discharge - Discharge Clinical Impression: Degenerative disc disease, lumbar, Right hip pain, Bulging of lumbar intervertebral disc Low back pain Qualifiers: Chronicity: unspecified Back pain laterality: bilateral Sciatica presence: with sciatica Sciatica laterality: sciatica of right side Qualified Code(s): M54.41 - Lumbago with sciatica, right side Condition: Stable Disposition: HOME, SELF-CARE Additional Instructions: LOW BACK PAIN: Three out of every four people will have an episode of disabling back pain during their lifetime. Most commonly the pain is due to straining of the muscles and ligaments in the low back. Usual treatment includes: (1) Rest on a firm surface. Avoid lying on your stomach. (2) Ice pack the painful area. After a few days, gentle heat may be used intermittently to relax the area, or ice packs can be continued. (3) Medication may be needed -- muscle relaxers and antiinflammatory medicines are commonly used. (4) As the back improves, exercises are prescribed to strengthen the back and abdominal muscles. Your doctor will advise you on the proper care for your back at each stage in your recovery. You may be better in a few days -- or healing may take several weeks. If new symptoms of a "herniated disc" (radiation of pain, numbness, or tingling down the back of the leg or weakness in the leg) occur, you should be re-examined. Further testing may be necessary. ORAL NARCOTIC MEDICATION: You have been given a prescription for pain control. This medication is a narcotic. It's best taken with food, as nausea can result if taken on an empty stomach. Don't operate machinery or drive within six hours of taking this medication. Do not combine this medicine with alcohol, or with any medication which can cause sedation (such as cold tablets or sleeping pills) unless you get permission from the physician. Narcotics tend to cause constipation. If possible, drink plenty of fluids and eat a diet high in fiber and fruits. Please be aware that prescription narcotics also have the potential for abuse. People become addicted to these medications because of the general sense of wellbeing that they induce. This feeling along with a significant reduction in tension, anxiety, and aggression provides a stimulating seductive quality to these drugs. Once your pain is under control, we encourage you to discard your unused narcotics. MUSCLE RELAXERS: Muscle relaxing medications are usually prescribed for acute muscle spasm or injury to the neck and back. They are often combined with antiinflammatory pain medication for increased relief. You may stop the muscle relaxer when the pain and stiffness have improved. Start the medication again if spasms recur. Muscle relaxers may cause drowsiness, especially with the first dose. Do not operate machinery or drive while under the effects of the medication. Most muscle relaxers last up to 24 hours. Do not combine the medication with alcohol. ICE PACKS: Apply ice packs frequently against the painful area. Many different schedules are recommended, such as "20 minutes on, 20 minutes off" or "one hour ice, two hours rest." If you need to work, you may need to go longer between ice treatments. You should plan to have the area ice packed AT LEAST one fourth of the time. The ice should be applied over the wrap, tape, or splint, or over a layer of cloth -- not directly against the skin. Some ice bags have a built-in cloth and can be put directly on the skin. WARM PACKS: After approximately two days, apply gentle heat (such as a heating pad or hot water bottle) for about 20 to 30 minutes about every two hours -- at least four times daily. Warmth and elevation will help you make a more rapid recovery, and will ease the pain considerably. Do not use HOT heat, and never apply heat for longer than 30 minutes. The continuous heat can invisibly damage skin and muscles -- even when no burn is seen on the surface. Damaged muscles can make you MORE sore. Use Aspercreme lidocaine to the area. We have put a Lidoderm patch on you at this time. You can leave that on for 12 hours then it must be removed. Did you need to wait 12 hours before you use the lidocaine cream. Please keep your appointment with your primary doctor on as you stated it is scheduled. You need to make sure at this appointment you discussed your diabetes and your out of insulin and your blood pressure medication. FOLLOW-UP CARE: If you have been referred to a physician for follow-up care, call the physicians office for an appointment as you were instructed or within the next two days. If you experience worsening or a significant change in your symptoms, notify the physician immediately or return to the Emergency Department at any time for re-evaluation. Prescriptions: Hydrocodone/Acetaminophen [[place] 5-325 mg Tablet] 1 tab PO Q6HP PRN #10 tablet PRN Reason: Cyclobenzaprine HCl [Flexeril 5 mg Tablet] 5 mg PO TID #15 tablet Forms: Elevated Blood Pressure Referrals: [facility] [Provider Group] - Follow up as needed
[2018-09-23 19:58] LABS: ABSOLUTE BASOPHILS # (AUTO) 0.1 10^3/uL (0.0-0.2); ABSOLUTE EOSINOPHILS # (AUTO) 0.2 10^3/uL (0.0-0.6); ABSOLUTE LYMPHOCYTES (AUTO) 2.2 10^3/uL (0.5-4.7); ABSOLUTE MONOCYTES (AUTO) 0.4 10^3/uL (0.1-1.4); ABSOLUTE NEUT (AUTO) 6.2 10^3/uL (1.7-8.2); BASOPHILS % (AUTO) 0.7 % (0-2); EOSINOPHILS % (AUTO) 2.2 % (0-6); HEMATOCRIT 44.6 % (36.0-47.0); HEMOGLOBIN 15.5 g/dL (12.0-15.5); LYMPHOCYTES % (AUTO) 24.8 % (13-45); MEAN CORPUSCULAR HEMOGLOBIN 31.7 pg (27.0-33.4); MEAN CORPUSCULAR HGB CONC 34.8 g/dL (32.0-36.0); MEAN CORPUSCULAR VOLUME 91 fl (80-97); MONOCYTES % (AUTO) 4.2 % (3-13); PLATELET COUNT 203 10^3/uL (150-450); RED CELL DISTRIBUTION WIDTH 13.2 % (11.5-14.0); SEGMENTED NEUTROPHILS % (AUTO) 68.1 % (42-78); TOTAL CELLS COUNTED % (AUTO) 100 %; WHITE BLOOD COUNT 9.1 10^3/uL (4.0-10.5)
[2018-09-23 20:08] LABS: APPEARANCE,URINE SLIGHTLY-CLOUDY; BILIRUBIN,URINE NEGATIVE (NEGATIVE); COLOR,URINE YELLOW; GLUCOSE, URINE >=500 mg/dL (NEGATIVE); KETONES,URINE TRACE mg/dL (NEGATIVE); LEUKOCYTE ESTERASE,URINE NEGATIVE (NEGATIVE); NITRITE,URINE NEGATIVE (NEGATIVE); PROTEIN,URINE NEGATIVE (NEGATIVE); URINE SPECIFIC GRAVITY 1.041
[2018-09-23 20:13] LABS: ALANINE AMINOTRANSFERASE 22 U/L (9-52); ALBUMIN 3.6 g/dL (3.5-5.0); ALKALINE PHOSPHATASE 116 U/L (38-126); ANION GAP 10 (5-19); ASPARTATE AMINO TRANSFERASE 20 U/L (14-36); BILIRUBIN,DIRECT 0.3 mg/dL (0.0-0.4); BILIRUBIN,TOTAL 0.5 mg/dL (0.2-1.3); BLOOD UREA NITROGEN 13 mg/dL (7-20); CALCIUM 9.1 mg/dL (8.4-10.2); CARBON DIOXIDE 30 mmol/L (22-30); CHLORIDE 99 mmol/L (98-107); GLUCOSE 313 mg/dL (75-110); POTASSIUM 3.6 mmol/L (3.6-5.0); SODIUM 139.4 mmol/L (137-145); TOTAL PROTEIN 7.1 g/dL (6.3-8.2)
--- NOTE | 2018-09-23 20:39 | RADIOLOGY REPORT (SQ) ---
EXAM DESCRIPTION: MR LUMBAR SPINE WITHOUT IV CONTRAST COMPLETED DATE/TME: 09/23/2018 19:25 CLINICAL HISTORY: 53 years, Female, low back pain, numbness, fever EXAM DESCRIPTION: CLINICAL HISTORY: low back pain, numbness, fever COMPARISON: None Available. TECHNIQUE: Multiplanar multisequence MR imaging of the lumbar spine was performed without contrast FINDINGS: There are mild degenerative changes. Multilevel mild anterior disc osteophyte complexes are present. There is mild bilateral L5-S1 neural foraminal narrowing and mild right L4-5 neural foraminal narrowing. There is no acute marrow edema. At L2-3 there is a mild posterior disc bulge causing mild central canal and mild bilateral lateral recess narrowing. Mild posterior disc bulge at L3-4 causes mild central canal, moderate right and mild left lateral recess narrowing. There is mild to moderate bilateral facet joint hypertrophy at this level. Broad-based mild posterior disc bulge at L4-5 causes mild central canal narrowing and moderate bilateral lateral recess narrowing. There is moderate bilateral facet joint hypertrophy at this level. There is no evidence of acute fracture. The conus medullaris and filum terminale and cauda equina appear unremarkable. There is no additional significant stenosis. No spondylolisthesis or spondylolysis seen. IMPRESSION: Mild degenerative changes with stenoses as above.
[2018-09-23] MEDS ORDERED: LIDOCAINE 5% (700 MG) TRANSDERMAL ADH..PATCH TP ONE (20:53)
[2018-09-23 21:04] VITALS: BP 149/89
== END 2018-09-23 21:06 | disposition home or self-care (01) ==
LOC: ER 17:59
DX: M51.16 Intervertebral disc disorders with radiculopathy, lumbar region (principal); R11.2 Nausea with vomiting, unspecified; I25.10 Atherosclerotic heart disease of native coronary artery without angina pectoris; I10 Essential (primary) hypertension; E11.9 Type 2 diabetes mellitus without complications; Z88.5 Allergy status to narcotic agent; Z95.1 Presence of aortocoronary bypass graft
CPT/HCPCS: 36415; 72148; 80053; 81001; 85025; 99284